=== PATIENT | female | born 1985 | race Caucasian/White ===

== ENCOUNTER 2020-11-06 10:14 | Emergency (ER) | payer SELFPAY ==
[2020-11-06] MEDS ORDERED: Ketorolac Tromethamine 30 MG/ML VIAL ONE (12:04)
[2020-11-06] MEDS ORDERED: Metoclopramide HCl 10 MG/2 ML VIAL ONE (12:04)
[2020-11-06] MEDS ORDERED: Dexamethasone 10 MG/ML VIAL ONE (12:04)
[2020-11-06] MEDS ORDERED: Metoclopramide 10 MG/10 ML UDCUP ONE (12:04)
== END 2020-11-06 14:26 | disposition home or self-care (01) ==
LOC: ERS 10:14
DX: G43.909 Migraine, unspecified, not intractable, without status migrainosus (principal); Z79.899 Other long term (current) drug therapy
CPT/HCPCS: 96374; 96375; J1100; J1885; J2765

== ENCOUNTER 2020-11-30 08:21 | Emergency (ER) | payer SELFPAY ==
[2020-11-30] MEDS ORDERED: Ketorolac Tromethamine 30 MG/ML VIAL ONE (09:01)
[2020-11-30 09:06] LABS: #Eosinphils 0.2 thou/uL (0.0-0.7); #Lymphocytes 1.5 thou/uL (1.20-3.40); #Monocytes 0.5 thou/uL (0.11-0.59); #Neutrophils 3.6 thou/uL (1.40-6.50); %Basophils 0.2 % (0.0-1.0); %Lymphocytes 26.2 % (21.0-51.0); %Monocytes 8.3 % (0.0-10.0); %Neutrophils 62.3 % (42.0-75.0); Hemoglobin 13.4 g/dL (12.0-16.0); Mean Corpuscular Hemoglobin 27.6 pg (27.0-31.0); Mean Corpuscular Volume 83.7 fL (78.0-98.0); Mean Platelet Volume 7.1 fL (7.4-10.4); Platelet Count 285 thou/uL (130-400); RBC Distribution Width 12.4 % (11.5-14.5); Red Blood Cell (RBC) Count 4.87 mill/uL (4.20-5.40); White Blood Cell (WBC) Count 5.8 thou/uL (4.8-10.8)
[2020-11-30 09:07] LABS: BHCG - Serum Negative (NEGATIVE); Pregs Control Background? CLEAR/WHITE (CLR/WHITE); Pregs Control Bar Appear? YES (CONTROL BAR)
[2020-11-30 09:22] LABS: ALT (SGPT) 84 U/L (8-55); AST (SGOT) 46 U/L (5-34); Albumin 4.2 g/dL (3.5-5.0); Alkaline Phosphatase 409 U/L (40-110); Anion Gap 15 mmol/L (10-20); BUN (Urea Nitrogen) 8 mg/dL (7.0-18.7); Bilirubin, Total 0.5 mg/dL (0.2-1.2); Calc. Creatinine Clearance 0 mL/min (70-130); Carbon Dioxide 20 mmol/L (22-29); Chloride 107 mmol/L (98-107); Globulin 3.4 g/dL (2.4-3.5); Glucose 102 mg/dL (70-105); Potassium 3.9 mmol/L (3.5-5.1); Protein, Total 7.6 g/dL (6.0-8.3); Sodium 138 mmol/L (136-145)
[2020-11-30 10:48] LABS: Bacteria/HPF None Seen HPF (None Seen); Bilirubin Negative (Negative); Blood, Urine Negative (Negative); Clarity Clear (Clear); Glucose, Urine (Dipstick) Normal (Negative); Ketone, Urine Negative (Negative); Leukocyte 75 Leu/uL (Negative); Nitrite Negative (Negative); Protein, Urine (Dipstick) 10 mg/dL (Neg-Trace); RBC/HPF None Seen HPF (0-3); Specific Gravity, Urine 1.027 (1.002-1.036); Urobilinogen Normal mg/dL (Less than 2)
== END 2020-11-30 10:41 | disposition home or self-care (01) ==
LOC: ERS 08:21
DX: N83.202 Unspecified ovarian cyst, left side (principal)
CPT/HCPCS: 36415; 76856; 80053; 81003; 81015; 84703; 85025; 96374; J1885

== ENCOUNTER 2020-12-07 09:48 | Emergency (ER) | payer SELFPAY ==
[2020-12-07 19:23] LABS: SARS-CoV-2 PCR by NAA DETECTED (NotDetected)
== END 2020-12-07 10:33 | disposition home or self-care (01) ==
LOC: ERS 09:48
DX: U07.1 COVID-19 (principal); G43.909 Migraine, unspecified, not intractable, without status migrainosus; R59.0 Localized enlarged lymph nodes
CPT/HCPCS: 99283; U0003; U0005

== ENCOUNTER 2020-12-17 04:02 | Emergency (ER) | payer SELFPAY | END 2020-12-17 06:34 | disposition home or self-care (01) | LOC: ERS 04:02 | DX: N13.2 Hydronephrosis with renal and ureteral calculous obstruction (principal); G43.909 Migraine, unspecified, not intractable, without status migrainosus; Z79.899 Other long term (current) drug therapy | CPT/HCPCS: 74177; 80053; 81003; 83690; 84703; 85025; 96374; J1885; Q9967 ==